=== PATIENT | female | born 1945 | race Caucasian/White ===

== ENCOUNTER 2016-12-23 10:51 | Day surgery (SDC) | payer MEDICARE, BC ==
--- NOTE | ~2016-12-23 | OP ---
Record Of Operation [facility] [address] [facility] [place] [address] NAME: BREANNA HOWARD : 49 STATUS : REG [facility] [place] PAT#: [id number] AGE: 71 ADM/REG DATE : 12/23/16 MR#: [id number] REPORT SERV DATE: 12/23/16 DICTATED BY: ANIBAL WHEELER DATE: 12/23/16 REPORT STATUS : Draft TRANSCRIBED BY: MISSY DATE: 12/23/16 DATE OF PROCEDURE: 12/23/2016 PREPROCEDURE DIAGNOSIS/REASON FOR COLONOSCOPY: Screening and diarrhea. PROCEDURE: Colonoscopy with random biopsies as well as hot biopsy polypectomy x7. POSTPROCEDURE DIAGNOSIS: There were six sessile diminutive polyps in the rectum, all removed with hot biopsy forceps and a 1 cm sessile polyp in the ascending colon, also removed with hot biopsy forceps. DESCRIPTION OF PROCEDURE: The patient was taken to the endoscopy suite and positioned in the left lateral decubitus position. Informed consent was obtained, followed by IV sedation delivered by [employer]GRAM INTERN. Digital rectal exam was performed. Slightly decreased sphincter tone. The scope was navigated without difficulty to the ileocecal valve, where the appendiceal orifice was identified. Cecal straps and ileocecal valve. Six random biopsies were taken for a segment of colon, these were initially done cold. However, the patient had some very mild colitis, which led to friability. All biopsies were taken with hot biopsy polypectomy technique, so six biopsies. Right colon, transverse colon, left colon and rectosigmoid, no diverticular disease was noted. The scope was withdrawn over a 12-minute period of time. The polyps as mentioned above, one sessile polyp measuring 1 cm in the ascending colon at 120 cm was removed with a hot biopsy polypectomy technique and six diminutive sessile polyps in the rectum all removed with hot biopsy polypectomy technique. An attempt was made to retroflex, but due to the patient's decreased sphincter tone, this was difficult and the scope was simply withdrawn slowly, visualizing grade 2 internal hemorrhoids, which were somewhat inflamed secondary to the bowel prep. She tolerated the procedure well. She will need repeat colonoscopy in five years. It is my pleasure participating in the care of your patient. RADHA/MISSY Anibal Wheeler M.D. / [id number] CC: Anibal Wheeler M.D.
[~2016-12-23 10:51] MED LIST: ALLEGRA-D24 HOUR PO; AMB10 PO; ASAB PO; COREG6 PO; CYMBALTA60 PO; KLONO1 PO; LOP50 PO; LORT7 PO; NORV5 PO; PLAVIX PO; PRIN5 PO; ZOFRAN ODT4 MG PO
[2017-02-17] MEDS ORDERED: L20 PO (10:34)
[2017-05-31] MEDS ORDERED: DSS PO (12:23)
[2017-05-31] MEDS ORDERED: OXYCONTIN HCL PO (12:25)
[2017-05-31] MEDS ORDERED: PCET PO (12:26)
[2017-05-31] MEDS ORDERED: V2 PO (12:27)
[2017-06-03] MEDS ORDERED: ULTRAM50 PO (08:10)
== END 2016-12-23 23:59 | disposition home or self-care (01) ==
LOC: DMU 10:51
PROVIDERS: Surgery
PROC: 0DBF8ZZ Excision of Right Large Intestine, Via Natural or Artificial Opening Endoscopic (ICD-10-PCS; 2016-12-23)
PROC: 0DBN8ZZ Excision of Sigmoid Colon, Via Natural or Artificial Opening Endoscopic (ICD-10-PCS; 2016-12-23)
PROC: 0DBP8ZZ Excision of Rectum, Via Natural or Artificial Opening Endoscopic (ICD-10-PCS; principal; 2016-12-23 12:00)
DX: Z12.11 Encounter for screening for malignant neoplasm of colon (principal); K62.1 Rectal polyp; K63.5 Polyp of colon; D12.6 Benign neoplasm of colon, unspecified; I10 Essential (primary) hypertension; K21.9 Gastro-esophageal reflux disease without esophagitis; M19.90 Unspecified osteoarthritis, unspecified site; I25.2 Old myocardial infarction; Z88.2 Allergy status to sulfonamides; Z79.899 Other long term (current) drug therapy; Z79.82 Long term (current) use of aspirin
CPT/HCPCS: 88305

== ENCOUNTER 2017-02-22 11:33 | Day surgery (SDC) | payer MEDICARE, BC ==
[2017-02-17 20:53] LABS: HEMATOCRIT 41.3 % (36.0-48.0); HEMOGLOBIN 13.8 g/dL (12.0-16.0)
[2017-02-17 21:11] LABS: BUN (BLOOD UREA NITROGEN) 11 MG/DL (6-23); CALCIUM, SERUM 9.1 MG/DL (8.5-10.4); CHLORIDE, SERUM 104 MMOL/L (96-112); CO2 (CARBON DIOXIDE) 32 MMOL/L (24-34); CREATININE 0.81 MG/DL (0.55-1.02); GFR AFRICAN AMERICAN 86 ML/MIN (>=60); GFR NON AFRICAN AMERICAN 74 ML/MIN (>=60); GLUCOSE, SERUM 86 MG/DL (60-99); POTASSIUM, SERUM 4.6 MMOL/L (3.5-5.3); SODIUM, SERUM 142 MMOL/L (135-148)
--- NOTE | ~2017-02-22 | OP ---
Record Of Operation [facility] [address] [place]. [address] NAME: BRAENNA HOWARD : 49 STATUS : [facility]#: [id number] AGE: 71 ADM/REG DATE : 02/22/17 MR#: [id number] REPORT SERV DATE: 02/23/17 DICTATED BY: ANIBAL RAYGOZA DATE: 02/22/17 REPORT STATUS : Draft TRANSCRIBED BY: MISSY DATE: 02/22/17 DATE OF PROCEDURE: 02/22/2017 PREPROCEDURE DIAGNOSIS: Fecal incontinence. POSTPROCEDURE DIAGNOSIS: Fecal incontinence. PROCEDURE: InterStim percutaneous nerve stimulator, stage 1. INDICATION: Incontinence of gas, liquid and solid stool. DESCRIPTION OF PROCEDURE: The patient was properly identified, placed in the prone cristina- knife position with the grounding pad on the patient's right heel per OR protocol. General anesthesia was administered. Pillows were placed under the lower abdomen to flatten the sacrum and under the shins to allow the toes to dangle freely. The grounding pad with red lead was attached to the patient's heel on the patient's right side. The patient was prepped and draped in the usual sterile fashion using Hibiclens solution and ChloraPrep. The C-arm was draped and moved into the AP position to provide fluoroscopic mapping of the sacral region which included marking out of the midline of the sacrum, SI joints, sciatic notches, medial foraminal borders, and the sacral foramina. The C-arm was moved into the lateral position to image the sacrum. Sacral promontory to the coccyx. Local injection of a 1:1 mixture of 1% lidocaine and 0.25% Marcaine with epinephrine was administered. A 3.5 cm foramen needle was introduced approximately 2 cm above the sciatic notch and 2 cm lateral to the sacral midline filling for the foraminal margins until the S3 foramen was identified and penetrated on the left side and then repeated on the right side and better result was on the patient's right side. The depth of the needle was confirmed and adjusted fluoroscopically. Proper needle position was confirmed by a direct observation of lifting of the perineum or Surjit, and observation of plantar flexion of the great using the external test stimulator. This was also tried on the patient's right side. The best result was actually on the patient's left, so the foramen needle stylet was removed and a directional wire guide was placed confirmed fluoroscopically with the bead at the anterior plane of the sacral bone. The foramen needle was removed. An incision was made peripherally to the directional guidewire through the fascial layer. The lead introducer sheath with dilator was placed over the directional guidewire and directed into the foramen ensuring the radiopaque marker of the lead introducer, was not extended beyond the anterior edge of the sacrum. The dilator was unlocked and removed along with the directional guidewire. The lead was then placed through the introducer sheath past the first white marker, but not past the second. The position was checked fluoroscopically. The lead was then further introduced until three electrodes were visible below the sacrum. Each electrode was tested for location by and visualization of the Surjit and plantar flexion of the great toe. The electrode was tunneled to the patient's right side. After satisfactory positioning was confirmed, the introducer sheath was retracted with the wire under continuous fluoro deploying the lead tines into the presacral tissue. A further incision was made into the subcu tissue posterior to the iliac crest and lateral to the sacrum. Blunt dissection was continued until the gluteal fascia was identified and hemostasis was achieved. A tunneling tool with straw was placed from the lead exit site subcutaneously to Record Of Operation [address] [place]. [address] NAME: BREANNA HOWARD : 49 STATUS : [facility] PAT#: [id number] AGE: 71 ADM/REG DATE : 02/22/17 MR#: [id number] REPORT SERV DATE: 02/23/17 DICTATED BY: ANIBAL RAYGOZA DATE: 02/22/17 REPORT STATUS : Draft TRANSCRIBED BY: MODL DATE: 02/22/17 the incised pocket site. The tunneling tool was removed and the lead was fed through the straw and pulled out the pocket site. The lead was cleansed of bodily fluids, dried and a protective boot was placed over the lead. The lead was inserted into the temporary percutaneous extension and the metal bands were aligned. The four set screws were tightened with the hex wrench until two clicks were heard. The boot was pushed over the connection. Prolene ties were used to secure on the grooves on either side of the connection. A tunnel was made subcutaneously and exited to a puncture site above the ipsilateral buttock. The percutaneous extension was placed through the straw and exposed wand connected to the twist lock diallo cable by the [employer] [facility]. The wounds were irrigated with sterile water and antibiotic solution, closed with interrupted 3-0 Vicryl sutures, 4-0 Monocryl running subcu. Counts were correct. Mastisol, Steri-Strips, Telfa, and a Biopatch were placed over the incisions followed by Tegaderm. The patient tolerated the procedure well and her program will be set in recovery. RADHA/MISSY Anibal Raygoza M.D. / [id number] CC: Anibal Raygoza M.D. NO PCP
[~2017-02-22 11:33] MED LIST changes: +L20 PO
[2017-05-31] MEDS ORDERED: DSS PO (12:23)
[2017-05-31] MEDS ORDERED: OXYCONTIN HCL PO (12:25)
[2017-05-31] MEDS ORDERED: PCET PO (12:26)
[2017-05-31] MEDS ORDERED: V2 PO (12:27)
[2017-06-03] MEDS ORDERED: ULTRAM50 PO (08:10)
== END 2017-02-22 19:27 | disposition home or self-care (01) ==
LOC: SDC 11:33
PROVIDERS: Surgery
PROC: 01HY3MZ Insertion of Neurostimulator Lead into Peripheral Nerve, Percutaneous Approach (ICD-10-PCS; principal; 2017-02-22 12:45)
DX: R15.9 Full incontinence of feces (principal); I25.2 Old myocardial infarction; I10 Essential (primary) hypertension; I25.10 Atherosclerotic heart disease of native coronary artery without angina pectoris; F41.9 Anxiety disorder, unspecified; F32.9 Major depressive disorder, single episode, unspecified; M19.90 Unspecified osteoarthritis, unspecified site; G25.81 Restless legs syndrome; K21.9 Gastro-esophageal reflux disease without esophagitis; Z88.2 Allergy status to sulfonamides; Z79.82 Long term (current) use of aspirin; Z79.02 Long term (current) use of antithrombotics/antiplatelets; Z79.899 Other long term (current) drug therapy; Z88.1 Allergy status to other antibiotic agents; Z87.442 Personal history of urinary calculi; Z87.891 Personal history of nicotine dependence; Z96.1 Presence of intraocular lens; Z98.41 Cataract extraction status, right eye; Z98.42 Cataract extraction status, left eye; Z98.51 Tubal ligation status; Z90.710 Acquired absence of both cervix and uterus; Z90.722 Acquired absence of ovaries, bilateral; Z98.890 Other specified postprocedural states
CPT/HCPCS: 36415; 76000; 80048; 85014; 85018; 93005; A9270-GY; C1778; J0330; J0690; J1885; J2250; J2405; J2550; J2710; J2795; J3010; J3370

== ENCOUNTER 2017-03-08 08:51 | Day surgery (SDC) | payer MEDICARE, BC ==
[2017-03-04 16:51] LABS: HEMATOCRIT 38.5 % (36.0-48.0); HEMOGLOBIN 13.5 g/dL (12.0-16.0)
[2017-03-04 17:07] LABS: BUN (BLOOD UREA NITROGEN) 9 MG/DL (6-23); CALCIUM, SERUM 8.9 MG/DL (8.5-10.4); CHLORIDE, SERUM 104 MMOL/L (96-112); CO2 (CARBON DIOXIDE) 32 MMOL/L (24-34); CREATININE 0.87 MG/DL (0.55-1.02); GFR AFRICAN AMERICAN 79 ML/MIN (>=60); GFR NON AFRICAN AMERICAN 68 ML/MIN (>=60); GLUCOSE, SERUM 96 MG/DL (60-99); POTASSIUM, SERUM 3.8 MMOL/L (3.5-5.3); SODIUM, SERUM 141 MMOL/L (135-148)
--- NOTE | ~2017-03-08 | OP ---
Record Of Operation [facility] [address] [place]. [address] NAME: BREANNA HOWARD : 49 STATUS : REG [facility] [place] PAT#: [id number] AGE: 71 ADM/REG DATE : 03/08/17 MR#: [id number] REPORT SERV DATE: 03/08/17 DICTATED BY: ANIBAL RAYGOZA DATE: 03/08/17 REPORT STATUS : Draft TRANSCRIBED BY: MISSY DATE: 03/08/17 DATE OF PROCEDURE: SURGEON: Anibal Raygoza M.D. [employer] WORKER: Stephnaie Handy. PREOPERATIVE DIAGNOSIS: Urinary and fecal incontinence. POSTOPERATIVE DIAGNOSIS: Urinary and fecal incontinence. INDICATIONS: Fecal incontinence of gas, liquid, and solid stool, and urinary incontinence. PROCEDURE: InterStim stage II. DESCRIPTION OF PROCEDURE: The patient was properly identified and positioned in the right lateral position per OR protocol. Monitored anesthesia care was administered. She was prepped and draped in the usual sterile fashion using Hibiclens and ChloraPrep solution. Local injection of a 1:1 mixture of 1% lidocaine and 0.25% Sensorcaine with epinephrine was administered. The previous buttock pocket incision was opened using blunt dissection and the lead percutaneous extension connection was identified and elevated. The percutaneous extension was cut and removed from the field ensuring sterility. The subcutaneous pocket anterior to the muscle surface was enlarged and hemostasis was established. The sutures holding the protective boot were cut and the boot was retracted. The set of screws were exposed and loosened with a hex wrench. The boot was removed and discarded. The lead was cleansed of bodily fluid and dried. The lead was inserted into the header of the InterStim neurostimulator until the blue tip was visualized in the distal window and the single set screw was tightened until two clicks were heard. The neurostimulator was placed in the subcutaneous pocket with the etched identification side upwards and the excessive lead wrapped counterclockwise around the stimulator. The programming head was placed over the implanted neurostimulator in a sterile cover to ensure adequate lead connection and the parameters were within normal limits. Impedance was confirmed to be within normal limits, greater than 50, less than 4000. The wounds were irrigated with antibiotic solution, closed with interrupted subcutaneous 2-0 Vicryl sutures and 4-0 Monocryl running subcutaneous. Counts were correct. Mastisol, Steri-Strips, Telfa, and Tegaderm were placed over the incision and the patient tolerated the procedure well. Her program was conducted by the [employer] [facility] in the recovery room. She tolerated the procedure well. She was given instructions. RADHA/MISSY Anibal Raygoza M.D. Record Of Operation [address] [place]. [address] NAME: BREANNA HOWARD : 49 STATUS : REG [facility] [place] PAT#: [id number] AGE: 71 ADM/REG DATE : 03/08/17 MR#: [id number] REPORT SERV DATE: 03/08/17 DICTATED BY: ANIBAL RAYGOZA DATE: 03/08/17 REPORT STATUS : Draft TRANSCRIBED BY: MISSY DATE: 03/08/17 / [id number] CC: Anibal Raygoza M.D.
[2017-05-31] MEDS ORDERED: DSS PO (12:23)
[2017-05-31] MEDS ORDERED: OXYCONTIN HCL PO (12:25)
[2017-05-31] MEDS ORDERED: PCET PO (12:26)
[2017-05-31] MEDS ORDERED: V2 PO (12:27)
[2017-06-03] MEDS ORDERED: ULTRAM50 PO (08:10)
== END 2017-03-08 19:11 | disposition home or self-care (01) ==
LOC: SDC 08:51
PROVIDERS: Surgery
PROC: 01HY0MZ Insertion of Neurostimulator Lead into Peripheral Nerve, Open Approach (ICD-10-PCS; 2017-03-08)
PROC: 0JH70BZ Insertion of Single Array Stimulator Generator into Back Subcutaneous Tissue and Fascia, Open Approach (ICD-10-PCS; principal; 2017-03-08 10:15)
DX: R15.9 Full incontinence of feces (principal); R32 Unspecified urinary incontinence; I10 Essential (primary) hypertension; I25.10 Atherosclerotic heart disease of native coronary artery without angina pectoris; K21.9 Gastro-esophageal reflux disease without esophagitis; F17.210 Nicotine dependence, cigarettes, uncomplicated; F32.9 Major depressive disorder, single episode, unspecified; F41.9 Anxiety disorder, unspecified; E03.9 Hypothyroidism, unspecified; G25.81 Restless legs syndrome; M19.90 Unspecified osteoarthritis, unspecified site; Z88.2 Allergy status to sulfonamides; Z79.82 Long term (current) use of aspirin; Z79.02 Long term (current) use of antithrombotics/antiplatelets; Z79.899 Other long term (current) drug therapy; Z96.1 Presence of intraocular lens; Z98.41 Cataract extraction status, right eye; Z98.42 Cataract extraction status, left eye; Z98.51 Tubal ligation status; Z90.710 Acquired absence of both cervix and uterus; Z90.722 Acquired absence of ovaries, bilateral; Z87.442 Personal history of urinary calculi; Z98.890 Other specified postprocedural states
CPT/HCPCS: 80048; 85014; 85018; C1767; J0690; J2250; J2405; J2795; J3010; J3370